=== PATIENT | male | born 1995 | race Hispanic/Latino ===

== ENCOUNTER 2016-10-11 16:57 | Emergency (ER) | payer MEDICAID ==
[2016-10-11] MEDS ORDERED: CLINDAMYCIN 600 MG/4 ML VIAL ONE ×2 (18:20→18:29)
[2016-10-11] MEDS ORDERED: ACETAMINOPHEN 160 MG/5 ML UDC ONE (21:17)
== END 2016-10-11 19:53 | disposition home or self-care (01) ==
LOC: ER 16:57
DX: L03.115 Cellulitis of right lower limb (principal); S80.261A Insect bite (nonvenomous), right knee, initial encounter; W57.XXXA Bitten or stung by nonvenomous insect and other nonvenomous arthropods, initial encounter
CPT/HCPCS: 96372